=== PATIENT | male | born 1980 | race Caucasian/White ===

== ENCOUNTER 2023-02-04 20:42 | Emergency (ER) | payer SELFPAY ==
[~2023-02-04] VITALS: Ht 170.2 cm; Wt 74.0 kg
[2023-02-04 20:45] VITALS: O2SAT 99
[2023-02-04] MEDS ORDERED: NALOXONE HCL 0.4 MG/ML 1ML VIAL IM STA (21:54)
[2023-02-04 22:57] LABS: BASOPHILS % 0.1 % (0.0-2.0); EOSINOPHILS % 0.1 % (0.0-5.0); HEMATOCRIT. 42.1 % (42.0-52.0); HEMOGLOBIN. 14.5 g/dL (14.0-18.0); LYMPHOCYTES % 9.3 % (20.0-50.0); MEAN CORPUSCULAR HEMOGLOBIN 30.3 pg (28.0-32.0); MEAN CORPUSCULAR VOLUME 88.4 fL (80.0-94.0); MEAN PLATELET VOLUME 7.5 fl (7.4-10.4); MONOCYTES % 4.4 % (2.0-8.0); NEUTROPHILS % 86.1 % (40.0-76.0); PLATELET 267 x1000/uL (130-400); RED BLOOD CELL COUNT 4.76 mill/uL (4.7-6.1); RED CELL DISTRIBUTION WIDTH 13.9 % (11.6-14.6)
[2023-02-04 23:00] LABS: CHLORIDE 105 mEq/L (98-107)
[2023-02-04 23:09] LABS: ETHANOL BLOOD < 10 mg/dL (-10)
[2023-02-04] MEDS ORDERED: NALO4SPR BOTHNSTRLS (23:17)
[2023-02-05 00:29] VITALS: BP 151/74; PULSE 101; RESP 15; TEMP 98.1
== END 2023-02-05 00:30 | disposition home or self-care (01) ==
LOC: ER 20:42
DX: T40.601A Poisoning by unspecified narcotics, accidental (unintentional), initial encounter (principal); Y92.9 Unspecified place or not applicable
CPT/HCPCS: 80053; 80320; 85025; 36415; 96372; 99283; J2310; Z7610 ×2; G0480

== ENCOUNTER 2023-04-28 07:16 | Emergency (ER) | payer MEDICAID ==
[~2023-04-28] VITALS: Ht 180.3 cm; Wt 90.0 kg
[~2023-04-28 07:16] MED LIST: NALO4SPR BOTHNSTRLS
[2023-04-28 07:20] VITALS: TEMP 98.3; O2SAT 100
[2023-04-28] MEDS ORDERED: IBUP-2029 MT (08:53)
[2023-04-28] MEDS ORDERED: AMOX-494 MT (08:53)
[2023-04-28 09:00] VITALS: BP 130/84; PULSE 86; RESP 18
[2023-04-28] MEDS ORDERED: IBUPROFEN 600MG TABLET PO ONE (09:00)
== END 2023-04-28 09:41 | disposition home or self-care (01) ==
LOC: ER 07:16
DX: R68.84 Jaw pain (principal)
CPT/HCPCS: 99283

== ENCOUNTER 2023-10-23 20:15 | Emergency (ER) | payer MEDICAID ==
[~2023-10-23] VITALS: Ht 170.2 cm; Wt 68.0 kg
[~2023-10-23 20:15] MED LIST changes: +AMOX-494 MT; +IBUP-2029 MT
[2023-10-23 20:33] VITALS: BP 112/76; PULSE 99; RESP 17; TEMP 98; O2SAT 98
== END 2023-10-23 23:42 | disposition left against medical advice (07) ==
LOC: ER 20:15
DX: F10.239 Alcohol dependence with withdrawal, unspecified (principal); Z53.21 Procedure and treatment not carried out due to patient leaving prior to being seen by health care provider; Y90.9 Presence of alcohol in blood, level not specified
CPT/HCPCS: 99281